=== PATIENT | female | born 1960 | race Caucasian/White ===

== ENCOUNTER 2018-01-22 11:06 | Emergency (ER) | payer SELFPAY ==
[~2018-01-22] VITALS: Ht 170.2 cm; Wt 86.2 kg
--- OUTSIDE RECORDS SUMMARY | 2018-01-22 11:12 | XMS REPORT | Continuity of Care Document ---
Author Author Gisela Womack [facility] Gisela LuanaTeo Vu [facility] Address Unknown Phone Unavailable Care Team Providers Care Green Prize Packer Name Role Phone RAMÓN BERG D.O. PCP Insurance Providers Guarantor Luanne Selby [address] [place] [address] Payer [employer] Policy Number [id number] Subscriber's Name Luanne Selby Relationship 01 Self / Same As Patient Effective Date 16 Problems Past Problems Medical Problem Onset Date RUQ abdominal pain Unknown Medications Current Home Medications Medication Dose Units Route Directions Days Qty Instructions Start Date Apixaban (Eliquis) 2.5 Mg Tab 05/31/16 Atorvastatin Calcium (Lipitor) 80 Mg Tab 80 Mg Oral 05/31/16 Citalopram Hydrobromide 10 Mg Tab 10 Mg Oral 05/31/16 Furosemide (Lasix) 20 Mg Tab 20 Mg Oral 05/31/16 Metoprolol Succinate (Toprol Xl) 25 Mg Tab 25 Mg Oral 05/31/16 Oxycodone Hcl 5 Mg Tab 05/31/16 Phenazopyridine Hcl (Pyridium) 200 Mg Tab 200 Mg Oral Three Times A Day 05/31/16 Potassium Chloride Microencaps (Klor-Con M20) 20 Meq Tab 20 Meq Oral 05/31/16 Promethazine Hcl (Phenergan (Po)) 25 Mg Tab 25 Mg Oral Every 4 Hours as needed for Nausea 15 Tablet 05/24/16 Sulfamethoxazole-Trimethoprim (Bactrim Ds) 1 Tab Tab 1 Tab Oral 05/31/16 Social History Social History Problem Response Recorded Date/Time Onset Date Status Smoking Status Heavy Tobacco Smoker 05/24/2016 5:17pm Not Applicable Not Applicable Query Response Start Date Stop Date Smoking Status Heavy Tobacco Smoker Hospital Discharge Instructions No hospital discharge instructions. Plan of Care Discharge Date 06/27/16 9:28am Prescriptions See Medication Section Functional Status No functional status results. Allergies, Adverse Reactions, Alerts Allergen Type Severity Reaction Status Last Updated No Known Drug Allergy Allergy Unknown Active 03/24/14 Immunizations No immunization records. Vital Signs Acute Vital Signs Vital Response Date/Time Blood Pressure 136/74 mm Hg 06/27/2016 9:26am Blood Pressure Mean 69 mm Hg 05/24/2016 8:15pm Temperature (Fahrenheit) 97.7 degrees F (96.0 - 99.9) 05/24/2016 5:12pm Temperature (Calculated Celsius) 36.68933 degrees C 05/24/2016 5:12pm Temperature Source Oral 05/24/2016 5:12pm Pulse Pulse Rate (adult) 67 bpm (60 - 100) 06/27/2016 9:26am Pulse Rate: ED 72 bpm 05/24/2016 8:15pm Respiratory Rate 18 breaths per minute (10 - 20) 05/24/2016 8:15pm Height (Feet) 5 ft 05/24/2016 5:12pm Height (Inches) 7.0 in. 05/24/2016 5:12pm Weight (Pounds) 150.0 lbs 05/24/2016 5:12pm Ambulatory Vital Signs Vital Response Date/Time Height 5 ft 7 in 06/07/2016 2:11pm Weight 155 lbs 06/07/2016 2:11pm Temperature, Oral 97.4 degrees F 06/07/2016 2:11pm Blood Pressure, Sitting, Left Arm 91/67 mm Hg 06/07/2016 2:11pm Pulse Rate 63 bpm 06/07/2016 2:11pm Respiration Rate 14 bpm 06/07/2016 2:11pm Body Surface Area 1.83 m2 06/07/2016 2:11pm Body Mass Index 24.3 kg/m2 06/07/2016 2:11pm Pulse Oximetry Pulse Oximetry 06/07/2016 2:11pm Results Laboratory Results Test Name Result Units Flags Reference Collection Date/Time Result Date/ Time Comments White Blood Count 6.9 K/uL 5.0-10.0 05/24/2016 5:pm 05/24/2016 5: 37pm Red Blood Count 3.99 M/uL L 4.20-5.40 05/24/2016 5:05/24/2016 5: 37pm Hemoglobin 13.3 g/dL 12.0-16.0 05/24/2016 5:05/24/2016 5:37pm Hematocrit 38.9 % 38.0-47.0 05/24/2016 5:05/24/2016 5:37pm Mean Corpuscular Volume 97.5 fL 82.0-100.0 05/24/2016 5:2016 5:37pm Mean Corpuscular Hemoglobin 33.3 pg H 26.0-33.0 05/24/2016 5:2016 5:37pm Mean Corpuscular Hemoglobin Concent 34.2 g/dL 31.0-36.0 05/24/2016 5: 05/24/2016 5:37pm Red Cell Distribution Width 12.7 % 11.5-14.5 05/24/2016 5:2016 5:37pm RDW Standard Deviation 45.4 fL 36.4-46.3 05/24/2016 5:05/24/2016 5 :37pm Platelet Count 143 K/uL 130-400 05/24/2016 5:05/24/2016 5:37pm Mean Platelet Volume 10.9 fL 7.0-11.0 05/24/2016 5:05/24/2016 5: 37pm Neutrophils (%) (Auto) 61.6 % 42.0-75.0 05/24/2016 5:05/24/2016 5: 37pm Lymphocytes (%) (Auto) 27.0 % 16.0-44.0 05/24/2016 5:05/24/2016 5: 37pm Monocytes (%) (Auto) 6.2 % 2.0-9.0 05/24/2016 5:05/24/2016 5:37pm Eosinophils (%) (Auto) 3.9 % 0-7.0 05/24/2016 5:25pm 05/24/2016 5:37pm Basophils (%) (Auto) 1.0 % 0-1 05/24/2016 5:25pm 05/24/2016 5:37pm Immature Granulocyte % (Auto) 0.3 % 0-0.5 05/24/2016 5:25pm 05/24/2016 5:37pm Nucleated Red Blood Cells % 0.0 /100WBC 0-0 05/24/2016 5:25pm 2016 5:37pm Neutrophils # (Auto) 4.2 K/uL 1.9-8.0 05/24/2016 5:25pm 05/24/2016 5: 37pm Lymphocytes # (Auto) 1.9 K/uL 0.9-5.2 05/24/2016 5:25pm 05/24/2016 5: 37pm Monocytes # (Auto) 0.4 K/uL 0.16-1.0 05/24/2016 5:25pm 05/24/2016 5: 37pm Eosinophils # (Auto) 0.3 K/uL 0-0.8 05/24/2016 5:25pm 05/24/2016 5: 37pm Basophils # (Auto) 0.1 K/uL 0-0.2 05/24/2016 5:25pm 05/24/2016 5:37pm Immature Granulocyte # (Auto) 0.02 K/uL 0-0.40 05/24/2016 5:25pm 2016 5:37pm Nucleated Red Blood Cells # 0.00 K/uL 0.0-0.012 05/24/2016 5:25pm 05/24 5:37pm Prothrombin Time 15.5 SECONDS H 9.0-12.0 05/24/2016 5:25pm 05/24/2016 7: 35pm Prothromb Time International Ratio 1.42 L 2.0-3.0 THERAPEUTIC 2016 5:25pm 05/24/2016 7:35pm Activated Partial Thromboplast Time 38.5 SECONDS H 24.0-37.0 05/24/2016 5 :25pm 05/24/2016 7:35pm D-Dimer Quantitative (PE/DVT) < 150 ng/mL 0-230 05/24/2016 5:25pm 05/24 7:35pm Results <230 ng/mL yeild a negative predictability for DVT or PE Random Glucose 130 mg/dL H 65-115 05/24/2016 5:pm 05/24/2016 6:40pm Blood Urea Nitrogen 9 mg/dL 8-25 05/24/2016 5:pm 05/24/2016 6:40pm Creatinine 1.08 mg/dL 0.9-1.6 05/24/2016 5:pm 05/24/2016 6:40pm Glomerular Filtration Rate Calc 52.48 mL/min 05/24/2016 5:pm 2016 6:40pm MULTIPLY RESULT BY 1.210 IF THE PATIENT IS -GUINEAN Units are mL/min/1.73 m2 > 60 Normal kidney function 30-59 Moderately decreased kidney function 15-29 Severely decreased kidney function <15 End-stage kidney failure BUN/Creatinine Ratio 8.3 05/24/2016 5:pm 05/24/2016 6:40pm Sodium Level 129 mEq/L L 133-145 05/24/2016 5:pm 05/24/2016 6:40pm Potassium Level 3.8 mEq/L 3.5-5.1 05/24/2016 5:pm 05/24/2016 6:40pm Chloride Level 103 mEq/L 98-116 05/24/2016 5:pm 05/24/2016 6:40pm Carbon Dioxide Level 22 mEq/L 22-34 05/24/2016 5:pm 05/24/2016 6: 40pm Anion Gap 7.8 6-13 05/24/2016 5:pm 05/24/2016 6:40pm Calcium Level 8.7 mg/dL 8.2-10.6 05/24/2016 5:pm 05/24/2016 6:40pm Total Protein 7.0 gm/dL 6.0-8.4 05/24/2016 5:pm 05/24/2016 6:40pm Albumin 4.5 gm/dL 3.2-5.0 05/24/2016 5:pm 05/24/2016 6:40pm Globulin 2.5 gm/dL 2.0-3.0 05/24/2016 5:pm 05/24/2016 6:40pm Albumin/Globulin Ratio 1.8 1.4-2.4 05/24/2016 5:25pm 05/24/2016 6: 40pm Total Bilirubin 1.2 mg/dL 0.1-1.3 05/24/2016 5:25pm 05/24/2016 6:40pm Alkaline Phosphatase 79 U/L 35-125 05/24/2016 5:25pm 05/24/2016 6:40pm Aspartate Amino Transf (AST/SGOT) 25 U/L 5-40 05/24/2016 5:25pm 2016 6:40pm Alanine Aminotransferase (ALT/SGPT) 15 U/L 5-40 05/24/2016 5:25pm 05/24 6:40pm Troponin I 0.00 ng/mL 0.0-0.02 05/24/2016 5:25pm 05/24/2016 6:39pm Lipase 24 U/L 8-57 05/24/2016 5:25pm 05/24/2016 6:40pm Procedures Procedure Status Date Provider(s) HYDRATION IV INFUSION INIT Completed 05/24/16 NOREEN GORMAN M.D. Encounters Encounter Location Arrival/Admit Date Discharge/Depart Date Attending Provider Departed Clinic Gisela Womack [facility] 06/27/16 8:22am 06/27/16 9: 28am COLE ROSENBERG M.D. Office Visit THA MARTINEZ 06/07/16 2:15pm THA MARTINEZ M.D. Registered Practice [facility] Martinez 06/07/16 2:15pm THA MARTINEZ M.D. Registered Referred Gisela Womack [facility] 06/04/16 6:37am THA MARTINEZ M.D. Office Visit THA MARTINEZ 05/31/16 2:15pm THA MARTINEZ M.D. Departed Emergency Room Giselazoila Womack [facility] 05/24/16 5:12pm 8:15pm NOREEN GORMAN M.D.
--- OUTSIDE RECORDS SUMMARY | 2018-01-22 11:12 | XMS REPORT | Continuity of Care Document ---
Author Author Gisela Anaya Vu [facility] Gisela Womack [facility] Address Unknown Phone Unavailable Care Team Providers Care Teleprinter Installer Name Role Phone RAMÓN BERG D.O. PCP Insurance Providers Guarantor Luanne Selby Address [address] [place] [address] Payer Health [employer] Policy Number [id number] Subscriber's Name Luanne Selby Relationship G8 Other Relationship Chief Complaint and Reason for Visit Chief Complaint Abdominal Pain Reason for Visit [id number] Problems Past Problems Medical Problem Onset Date RUQ abdominal pain Unknown Medications Current Home Medications Medication Dose Units Route Directions Days Qty Instructions Start Date Promethazine Hcl (Phenergan (Po)) 25 Mg Tab 25 Mg Oral Every 4 Hours as needed for Nausea 15 Tablet 05/24/16 Social History Social History Problem Response Recorded Date/Time Onset Date Status Smoking Status Heavy Tobacco Smoker 05/24/2016 5:17pm Not Applicable Not Applicable Query Response Start Date Stop Date Smoking Status Heavy Tobacco Smoker Hospital Discharge Instructions No hospital discharge instructions. Plan of Care Discharge Date 05/24/16 8:15pm Disposition 01 HOME, SELF-CARE Condition at Discharge Stable Instructions/Education Provided Abdominal Pain (ED) Prescriptions See Medication Section Referrals RAMÓN BERG D.O. Address: [facility] [address] [place] [address] Note: ELIAS BARROSO M.D. Address: [address] [place] [id number] Additional Instructions/Education Your CT scan and labs today were unremarkable. I suspect you have a poorly functioning gall bladder. You will need to have a HIDA scan done then follow up with Dr. Barroso to determine whether you need your gall bladder taken out or not. Use Phenergan for nausea. Continue with Oxycodone as needed for pain. Call Dr. Berg to get refills on your pain meds. Functional Status No functional status results. Allergies, Adverse Reactions, Alerts Allergen Type Severity Reaction Status Last Updated No Known Drug Allergy Allergy Unknown Active 03/24/14 NO KNOWN ALLERGIES Allergy Unknown Active 10/22/03 Immunizations No immunization records. Vital Signs Acute Vital Signs Vital Response Date/Time Blood Pressure 89/59 mm Hg 05/24/2016 8:15pm Blood Pressure Mean 69 mm Hg 05/24/2016 8:15pm Temperature (Fahrenheit) 97.7 degrees F (96.0 - 99.9) 05/24/2016 5:12pm Temperature (Calculated Celsius) 36.68328 degrees C 05/24/2016 5:12pm Temperature Source Oral 05/24/2016 5:12pm Pulse Pulse Rate (adult) 69 bpm (60 - 100) 05/24/2016 5:33pm Pulse Rate: ED 72 bpm 05/24/2016 8:15pm Respiratory Rate 18 breaths per minute (10 - 20) 05/24/2016 8:15pm Height (Feet) 5 ft 05/24/2016 5:12pm Height (Inches) 7.0 in. 05/24/2016 5:12pm Weight (Pounds) 150.0 lbs 05/24/2016 5:12pm Height 5 ft 7 in 05/24/2016 5:12pm Weight 150 lb 05/24/2016 5:12pm Body Mass Index 23.5 kg/m^2 05/24/2016 5:12pm Results Laboratory Results Test Name Result Units Flags Reference Collection Date/Time Result Date/ Time Comments White Blood Count 6.9 K/uL 5.0-10.0 05/24/2016 5:25pm 05/24/2016 5: 37pm Red Blood Count 3.99 M/uL L 4.20-5.40 05/24/2016 5:25pm 05/24/2016 5: 37pm Hemoglobin 13.3 g/dL 12.0-16.0 05/24/2016 5:pm 05/24/2016 5:37pm Hematocrit 38.9 % 38.0-47.0 05/24/2016 5:pm 05/24/2016 5:37pm Mean Corpuscular Volume 97.5 fL 82.0-100.0 [...] Monocytes (%) (Auto) 6.2 % 2.0-9.0 05/24/2016 5:pm 05/24/2016 5:37pm Eosinophils (%) (Auto) 3.9 % 0-7.0 05/24/2016 5:pm 05/24/2016 5:37pm Basophils (%) (Auto) 1.0 % 0-1 05/24/2016 5:05/24/2016 5:37pm Immature Granulocyte % (Auto) 0.3 % [...] Random Glucose 130 mg/dL H 65-115 05/24/2016 5:25pm 05/24/2016 6:40pm Blood Urea Nitrogen 9 mg/dL 8-25 05/24/2016 5:25pm 05/24/2016 6:40pm Creatinine 1.08 mg/dL 0.9-1.6 05/24/2016 5:25pm 05/24/2016 6:40pm Glomerular Filtration Rate Calc 52.48 mL/min 05/24/2016 5:25pm 2016 6:40pm MULTIPLY RESULT BY 1.210 IF THE PATIENT IS -BHUTANESE Units are mL/min/1.73 m2 > 60 Normal kidney function 30-59 Moderately decreased kidney function 15-29 Severely decreased kidney function <15 End-stage kidney failure BUN/Creatinine Ratio 8.3 05/24/2016 5:25pm 05/24/2016 6:40pm Sodium Level 129 mEq/L L [...] 05/24/2016 6:40pm Albumin/Globulin Ratio 1.8 1.4-2.4 05/24/2016 5:pm 05/24/2016 6: 40pm Total Bilirubin 1.2 mg/dL 0.1-1.3 05/24/2016 5:pm 05/24/2016 6:40pm Alkaline Phosphatase 79 U/L 35-125 05/24/2016 5:25pm 05/24/2016 6:40pm Aspartate Amino Transf (AST/SGOT) 25 U/L 5-40 05/24/2016 5:25pm 2016 6:40pm Alanine Aminotransferase (ALT/SGPT) 15 U/L 5-40 05/24/2016 5:25pm 05/24 6:40pm Troponin I 0.00 ng/mL 0.0-0.02 05/24/2016 5:25pm 05/24/2016 6:39pm Lipase 24 U/L 8-57 05/24/2016 5:25pm 05/24/2016 6:40pm Procedures No known history of procedures. Encounters Encounter Location Arrival/Admit Date Discharge/Depart Date Attending Provider Departed Emergency Room Gisela Womack [facility] 05/24/16 5:12pm 8:15pm NOREEN GORMAN M.D. Recent Diagnosis
--- OUTSIDE RECORDS SUMMARY | 2018-01-22 11:12 | XMS REPORT | Continuity of Care Document ---
Author Author [facility] Address Unknown Phone Unavailable Allergies Active Description Code Type Severity Reaction Onset Reported/Identified Relationship to Patient Clinical Status Yes ACETAMINOPHEN 3347 DRUG INGREDI N/A N&V 09/17/2014 Medications There is no data. Problems There is no data. Procedures There is no data. Results Test Result Range CBC WITH AUTO DIFFERENTIAL - 06/09/15 14:20 BASOPHILS RELATIVE PERCENT 0.2 % 0.0-2.5 EOSINOPHILS RELATIVE PERCENT 3.3 % <=5.0 HEMATOCRIT 41.0 % 34.9-44.5 HEMOGLOBIN 13.4 g/dL 12.0-15.5 LYMPHOCYTES RELATIVE PERCENT 32.4 % 22.0-49.0 MEAN CORPUSCULAR HEMOGLOBIN 31.4 pg 26.0-34.0 MEAN CORPUSCULAR HEMOGLOBIN CONC 32.7 g/dL 31.0-37.0 MEAN CORPUSCULAR VOLUME 96.0 fL 81.6-98.3 MONOCYTES RELATIVE PERCENT 5.2 % 2.0-9.0 NEUTROPHILS RELATIVE PERCENT 58.9 % 40.0-75.0 PLATELET COUNT 180 10E9/L 150-450 RED BLOOD CELL COUNT 4.27 10E12/L 3.90-5.03 RED CELL DISTRIBUTION WIDTH 12.8 % 11.9-15.5 [id number] 9.1 10E9/L 3.5-10.5 [id number] 2.90 10E9/L 0.90-2.90 [id number] 0.50 10E9/L 0.30-0.90 [id number] 0.30 10E9/L 0.05-0.50 [id number] 5.40 10E9/L 1.70-7.00 [id number] 0.00 10E9/L 0.00-0.30 COMPREHENSIVE METABOLIC PANEL - 06/09/15 14:20 ALBUMIN 4.1 g/dL 3.5-5.0 ALKALINE PHOSPHATASE 97 U/L 46-116 ALT 18 U/L 9-52 AST 19 U/L 14-36 BILIRUBIN,TOTAL 0.5 mg/dL 0.2-1.3 BUN BLOOD 9 mg/dL 7-17 CALCIUM 8.4 mg/dL 8.4-10.2 CHLORIDE 103 mmol/L 99-108 CO2 22 mmol/L 22-30 CREATININE 0.90 mg/dL 0.70-1.20 EGFR > mL/min >59 GLUCOSE 117 mg/dL 64-110 POTASSIUM 3.6 mmol/L 3.6-5.0 PROTEIN TOTAL 6.9 g/dL 6.0-8.0 SODIUM 140 mmol/L 138-148 URINE MICROSCOPIC - 06/09/15 14:26 BACTERIA Trace RBC UA 0-3 0-3 SQUAMOUS EPITHELIAL 1+ 1+ WBC UA 0-3 0-3 URINE CULTURE - 06/09/15 14:35 [id number] [place] Count>[id number] <782512 cfu/mL of at least 2 organisms suggestive of contamination Encounters ACCT No. Visit Date/Time Discharge Status Pt. Type Provider Facility Loc./Unit Complaint [id number] 06/09/2015 14:22:18 06/09/2015 23:59:59 CLS Outpatient [facility] [id number] 06/09/2015 13:39:23 06/09/2015 23:59:59 CLS Outpatient JESSE DENG [facility]
[2018-01-22] MEDS ORDERED: ONDANSETRON 8 MG (ZOFRAN) ORAL DISSOLVE TAB ONE (12:37)
--- NOTE | 2018-01-22 12:38 | ED Cough/URI ---
General Chief Complaint: Cough/Cold/Flu Symptoms Stated Complaint: EAR PAIN;SORE THROAT;NAUSEA Nursing Triage Note: Pt reports bilat ear pain, worse on right since yesterday. Pt also reports sore throat and nausea. Source: patient Exam Limitations: no limitations History of Present Illness Date Seen by Provider: Jan 22, 2018 Time Seen by Provider: 11:50 Initial Comments Patient is a 57-year-old female who presents to the emergency room with complaints of bilateral ear pain/pressure, sore throat, and nausea that started last night. She reports chills but denies checking her temperature. Timing/Duration: yesterday Associated Symptoms: earache, fever/chills, headache, sinus infection (sinue pressure), sore throat Allergies and Home Medications Allergies Coded Allergies: No Known Drug Allergies (Unverified , 01/22/18) Home Medications Ondansetron 4 Mg Tab.rapdis, 4 MG SL Q4H PRN for NAUSEA/VOMITING-1ST LINE Prescribed by: REGINA GALLEGO on 01/22/18 1300 Patient Home Medication List Home Medication List Reviewed: Yes Review of Systems Review of Systems Constitutional: see HPI, chills; No fever EENTM: see HPI, ear pain, throat pain, other Respiratory: see HPI Gastrointestinal: see HPI, nausea All Other Systems Reviewed Negative Unless Noted: Yes Past Oynrbgp-Abrmhl-Bpvgqx Hx Past Med/Social Hx: Reviewed Nursing Past Med/Soc Hx Patient Social History Alcohol Use: Denies Use Recreational Drug Use: No Smoking Status: Current Everyday Smoker Type Used: Cigarettes Recent Foreign Travel: No Contact w/Someone Who Travel: No Recent Infectious Disease Expo: No Recent Hopitalizations: No Seasonal Allergies Seasonal Allergies: No Past Medical History Surgeries: Yes (pacemaker/defib) Respiratory: Yes (pulmonary edema) Cardiac: Yes (QT syndrome) Hypertension, Irregular Heartbeat Gastrointestinal: No Musculoskeletal: No Endocrine: No HEENT: No Cancer: No Psychosocial: No Family Medical History Reviewed Nursing Family Hx Physical Exam Vital Signs - First Documented 01/22/18 11:17 Temp 97.9 Pulse 77 Resp 18 B/P (MAP) 109/77 (88) Pulse Ox 96 O2 Delivery Room Air Capillary Refill : Less Than 3 Seconds Height: 5'7.00" Weight: 190lbs. oz. 86.330212qa; BMI Method:Stated General Appearance: WD/WN, no apparent distress Eyes: Bilateral Eye Normal Inspection, Bilateral Eye PERRL, Bilateral Eye EOMI HEENT: PERRL/EOMI, TMs normal, pharynx normal, other (sinus tenterness maxillary and frontal) Neck: non-tender, full range of motion Respiratory: chest non-tender, lungs clear, normal breath sounds, no respiratory distress, no accessory muscle use, respiratory distress Cardiovascular: normal peripheral pulses, regular rate, rhythm, no edema, no gallop, no JVD, no murmur Gastrointestinal: normal bowel sounds, non tender, soft, no organomegaly, no pulsatile mass Neurologic/Psychiatric: alert, normal mood/affect, oriented x 3 Skin: normal color, warm/dry Progress/Results/Core Measures Suspected Sepsis Recent Fever Within 48 Hours: No Infection Criteria Present: Suspected New Infection New/Unexplained Altered Menta: No Sepsis Screen: No Definite Risk SIRS Temperature:97.9 Pulse: 77 Respiratory Rate: 18 Blood Pressure 109 /77 Mean: 88 Results/Orders Lab Results Laboratory Tests Test 01/22/18 11:58 Range/Units Group A Streptococcus Screen NEGATIVE NEGATIVE Micro Results Microbiology 01/22/18 Throat Culture - Final, Complete No Beta Strep isolated 01/22/18 Influenza Types A,B Antigen (DONNIE) - Final, Complete My Orders Orders - REGINA GALLEGO Hydrocodone/Apap 7.5/325 Tab (Lortab 7. (01/22/18 12:45) Ondansetron Oral Dissolve Tab (Zofran (01/22/18 12:45) Ondansetron Oral Dissolve Tab (Zofran O (01/22/18 12:37) Medications Given in ED Vital Signs/I&O 01/22/18 01/22/18 11:17 13:07 Temp 97.9 Pulse 77 72 Resp 18 18 B/P (MAP) 109/77 (88) 110/72 (88) Pulse Ox 96 96 O2 Delivery Room Air Capillary Refill : Less Than 3 Seconds Blood Pressure Mean: 88 Progress Note : Time: 12:50 Progress Note I have seen and evaluated the patient. I have informed her of laboratory findings. She agrees with plan of care, return precautions were given. Departure Impression Primary Impression: Sinus pressure Additional Impression: Environmental allergies Disposition: 01 HOME, SELF-CARE Condition: Stable/Unchanged Departure-Patient Inst. Decision time for Depature: 12:58 Patient Instructions: LOCAL PHYSICIAN LIST, Seasonal Allergies (DC) Add. Discharge Instructions: You may use ibuprofen and Tylenol as needed by the bottle for pain. Take the Zofran as needed for nausea. Use Afrin nasal spray as directed by the bottle. Add quyu-oro-nrdzokp allergy medications like Zyrtec or Claritin to your Benadryl regimen as directed by the bottle. Follow up with a primary care provider within 1 week for recheck. All discharge instructions reviewed with patient and/or family. Voiced understanding. Scripts Ondansetron (Zofran Odt) 4 Mg Tab.rapdis 4 MG SL Q4H PRN for NAUSEA/VOMITING-1ST LINE, #14 TAB Prov: REGINA GALLEGO 01/22/18 REGINA GALLEGO Jan 22, 2018 12:38
[2018-01-22] MEDS: ONDANSETRON 4 MG (ZOFRAN) ORAL DISSOLVE TAB PO ONE ×2 (12:42→12:43)
[2018-01-22] MEDS ORDERED: HYDROcodone/APAP 7.5 MG/325 MG (LORTAB, LORCET PLUS) TABLET PO ONE (12:45)
[2018-01-22] MEDS ORDERED: ONDA4TAB8 SL (13:00)
[2018-01-22 13:07] VITALS: BP 110/72
== END 2018-01-22 13:07 | disposition home or self-care (01) ==
LOC: ER 11:08
DX: J34.89 Other specified disorders of nose and nasal sinuses (principal); T78.40XA Allergy, unspecified, initial encounter; I10 Essential (primary) hypertension; Z95.810 Presence of automatic (implantable) cardiac defibrillator
CPT/HCPCS: 87430; 87804

== ENCOUNTER 2019-04-14 13:08 | Emergency (ER) | payer OTHER ==
[~2019-04-14] VITALS: Ht 170 cm; Wt 82.0 kg
[~2019-04-14 13:08] MED LIST: ONDA4TAB8 SL
[2019-04-14] MEDS ORDERED: ASPIRIN 81 MG CHEW (CHILDREN'S ASA) PO ONE (13:30)
[2019-04-14 13:32] LABS: BASOPHILS % (AUTO) 0 % (0-10); EOSINOPHILS # (AUTO) 0.2 10^3/uL (0.0-0.3); EOSINOPHILS % (AUTO) 3 % (0-10); HEMATOCRIT 40 % (35-52); HEMOGLOBIN 13.7 G/DL (11.5-16.0); LYMPHOCYTES # (AUTO) 1.8 X 10^3 (1.0-4.0); LYMPHOCYTES % (AUTO) 25 % (12-44); MEAN CORPUSCULAR HEMOGLOBIN 33 PG (25-34); MEAN CORPUSCULAR HGB CONC 34 G/DL (32-36); MEAN CORPUSCULAR VOLUME 96 FL (80-99); MEAN PLATELET VOLUME 11.2 FL (7.4-10.4); MONOCYTES # (AUTO) 0.3 X 10^3 (0.0-1.0); MONOCYTES % (AUTO) 4 % (0-12); NEUTROPHILS # (AUTO) 4.8 X 10^3 (1.8-7.8); NEUTROPHILS % (AUTO) 67 % (42-75); PLATELET COUNT 168 10^3/uL (130-400); RED CELL DISTRIBUTION WIDTH 13.7 % (10.0-14.5); WHITE BLOOD COUNT 7.2 10^3/uL (4.3-11.0)
[2019-04-14] MEDS ORDERED: RIVA10TA PO (13:39)
[2019-04-14] MEDS ORDERED: SPIR25TA5 PO (13:39)
[2019-04-14] MEDS ORDERED: CHOLESTEROL PO (13:39)
[2019-04-14] MEDS ORDERED: METO-387 PO (13:39)
[2019-04-14] MEDS ORDERED: FURO-125 PO (13:39)
--- NOTE | 2019-04-14 13:47 | Diagnostic Imaging Report ---
INDICATION: Chest pain. TIME OF EXAM: 1:33 PM COMPARISON: No prior studies are available for comparison. FINDINGS: Heart size is normal. Cardiac defibrillator is in place. The lungs are clear. No infiltrates are seen. There is no effusion or pneumothorax identified. IMPRESSION: No acute cardiopulmonary process is detected. Dictated by: Dictated on workstation # [id number]
[2019-04-14 13:48] LABS: INR 1.2 (0.8-1.4); PROTHROMBIN TIME PATIENT 15.8 SEC (12.2-14.7)
[2019-04-14 13:58] LABS: ALBUMIN 4.2 GM/DL (3.2-4.5); BILIRUBIN,TOTAL 0.6 MG/DL (0.1-1.0); CALCIUM 9.1 MG/DL (8.5-10.1); CREATININE SERUM 1.01 MG/DL (0.60-1.30); POTASSIUM 3.5 MMOL/L (3.6-5.0); TOTAL PROTEIN 6.8 GM/DL (6.4-8.2)
[2019-04-14] MEDS ORDERED: FAMOTIDINE 20MG/2ML IV (PEPCID) IV STA (14:12)
[2019-04-14] MEDS ORDERED: ANTACID SUSP 30 ML UDC (MYLANTA) PO ONE (14:15)
[2019-04-14] MEDS ORDERED: LIDOCAINE 2% VISCOUS 15 ML UDC PO ONE (14:15)
--- NOTE | 2019-04-14 14:57 | ED Chest Pain ---
General Chief Complaint: Chest Pain Stated Complaint: CHEST PAIN Nursing Triage Note: PT CO OF CHEST PAIN STARTED 1 WEEK AGO INTERMITTENLY, HAS BEEN GOING ON FOR 2 DAYS. RATES 6/10. HAS PACEMAKER AND DEFIBRILLATOR. PT C/P IS REPRODUCEABLE AT STERNUM Nursing Sepsis Screen: No Definite Risk Source: patient Exam Limitations: no limitations History of Present Illness Date Seen by Provider: Apr 14, 2019 Time Seen by Provider: 13:12 Initial Comments Here with report of central chest pain that radiates to the right shoulder is been going on fairly constantly over the last 2 days. Does have history of previous cardiac event with stent. She is on Xarelto and takes that as directed. She just lost her in January of this year and it has been difficult through the holidays. She also has increased stressors with a grandson that has substance abuse issues. Has had some nausea but no vomiting. Denies breathing problems. Denies sweating. States that she's had pain intermittently over the last week and then persistent over the last 2 days. Timing/Duration: changing over time Severity/Quality: pressure, sharp Location: central Radiation: shoulders (right) Activities at Onset: emotional stress Prior CP/Workup: cardiac cath ASA po CORPORATE STRATEGY INTERN: No NTG SL CORPORATE STRATEGY INTERN: No Associated Symptoms: No abdominal pain, No back pain; nausea/vomiting; No shortness of breath Allergies and Home Medications Allergies Coded Allergies: No Known Drug Allergies (Unverified , 01/22/18) Home Medications Furosemide 20 Mg Tablet, 20 MG PO PRN, (Reported) Metoprolol Succinate 25 Mg Tab.er.24h, 25 MG PO DAILY, (Reported) Patient Home Medication List Home Medication List Reviewed: Yes Review of Systems Review of Systems Constitutional: see HPI; No chills; fever EENTM: No Symptoms Reported Respiratory: No Symptoms Reported Cardiovascular: See HPI Gastrointestinal: See HPI; Denies Constipated, Denies Diarrhea Genitourinary: No Symptoms Reported Musculoskeletal: No joint pain; muscle pain Skin: no symptoms reported Psychiatric/Neurological: See HPI, Anxiety, Depressed Endocrine: No Symptoms Reported All Other Systems Reviewed Negative Unless Noted: Yes Past Ddxhrse-Osojnj-Omjmfq Hx Past Med/Social Hx: Reviewed Nursing Past Med/Soc Hx Patient Social History Alcohol Use: Denies Use Recreational Drug Use: No Smoking Status: Current Everyday Smoker Type Used: Cigarettes Recent Foreign Travel: No Contact w/Someone Who Travel: No Recent Infectious Disease Expo: No Recent Hopitalizations: No Physical Abuse: No Sexual Abuse: No Seasonal Allergies Seasonal Allergies: No Past Medical History Surgeries: Yes (pacemaker/defib) Respiratory: Yes (pulmonary edema) Cardiac: Yes (QT syndrome) Hypertension, Irregular Heartbeat [employer] History: Hysterectomy Gastrointestinal: No Musculoskeletal: No Endocrine: No HEENT: No Cancer: No Psychosocial: No Family Medical History Reviewed Nursing Family Hx No Pertinent Family Hx Physical Exam Vital Signs Vital Signs - First Documented 04/14/19 13:10 Temp 36.9 Pulse 84 Resp 18 B/P (MAP) 144/97 (113) O2 Delivery Room Air Capillary Refill : Less Than 3 Seconds Height, Weight, BMI Height: 5'7.00" Weight: 190lbs. oz. 86.245962tg; 28.00 BMI Method:Stated General Appearance: No Apparent Distress, WD/WN HEENT: PERRL/EOMI, Pharynx Normal Neck: Non Tender, Supple Respiratory: Lungs Clear, Normal Breath Sounds Cardiovascular: Regular Rate, Rhythm, No Murmur Gastrointestinal: Non Tender, Soft Extremity: Normal Range of Motion, Non Tender Neurologic/Psychiatric: Alert, Oriented x3 Skin: Normal Color, Warm/Dry Progress/Results/Core Measures Results/Orders Lab Results Laboratory Tests Test 04/14/19 13:20 04/14/19 15:20 Range/Units White Blood Count 7.2 4.3-11.0 10^3/uL Red Blood Count 4.19 L 4.35-5.85 10^6/uL Hemoglobin 13.7 11.5-16.0 G/DL Hematocrit 40 35-52 % Mean Corpuscular Volume 96 80-99 FL Mean Corpuscular Hemoglobin 33 25-34 PG Mean Corpuscular Hemoglobin Concent 34 32-36 G/DL Red Cell Distribution Width 13.7 10.0-14.5 % Platelet Count 168 130-400 10^3/uL Mean Platelet Volume 11.2 H 7.4-10.4 FL Neutrophils (%) (Auto) 67 42-75 % Lymphocytes (%) (Auto) 25 12-44 % Monocytes (%) (Auto) 4 0-12 % Eosinophils (%) (Auto) 3 0-10 % Basophils (%) (Auto) 0 0-10 % Neutrophils # (Auto) 4.8 1.8-7.8 X 10^3 Lymphocytes # (Auto) 1.8 1.0-4.0 X 10^3 Monocytes # (Auto) 0.3 0.0-1.0 X 10^3 Eosinophils # (Auto) 0.2 0.0-0.3 10^3/uL Basophils # (Auto) 0.0 0.0-0.1 10^3/uL Prothrombin Time 15.8 H 12.2-14.7 SEC INR Comment 1.2 0.8-1.4 Activated Partial Thromboplast Time 37 H 24-35 SEC Sodium Level 144 135-145 MMOL/L Potassium Level 3.5 L 3.6-5.0 MMOL/L Chloride Level 115 H 98-107 MMOL/L Carbon Dioxide Level 19 L 21-32 MMOL/L Anion Gap 10 5-14 MMOL/L Blood Urea Nitrogen 8 7-18 MG/DL Creatinine 1.01 0.60-1.30 MG/DL Estimat Glomerular Filtration Rate 56 BUN/Creatinine Ratio 8 Glucose Level 177 H 70-105 MG/DL Calcium Level 9.1 8.5-10.1 MG/DL Corrected Calcium 8.9 8.5-10.1 MG/DL Magnesium Level 2.0 1.6-2.4 MG/DL Total Bilirubin 0.6 0.1-1.0 MG/DL Aspartate Amino Transf (AST/SGOT) 23 5-34 U/L Alanine Aminotransferase (ALT/SGPT) 15 0-55 U/L Alkaline Phosphatase 124 40-136 U/L Myoglobin 39.9 10.0-92.0 NG/ML Troponin I < 0.028 < 0.028 <0.028 NG/ML Total Protein 6.8 6.4-8.2 GM/DL Albumin 4.2 3.2-4.5 GM/DL Lipase 20 8-78 U/L My Orders Orders - MARAL NAVARRO MD Cbc With Automated Diff (04/14/19 13:17) Magnesium (04/14/19 13:17) Chest 1 View, Ap/Pa Only (04/14/19 13:17) Ekg Tracing (04/14/19 13:17) Comprehensive Metabolic Panel (04/14/19 13:17) Myoglobin Serum (04/14/19 13:17) Protime With Inr (04/14/19 13:17) Partial Thromboplastin Time (04/14/19 13:17) O2 (04/14/19 13:17) Monitor-Rhythm Ecg Trace Only (04/14/19 13:17) Lipid Panel (04/15/19 06:00) Ed Iv/Invasive Line Start (04/14/19 13:17) Lipase (04/14/19 13:17) Troponin I (04/14/19 13:17) Aspirin Chewable Tablet (Baby Aspirin Ch (04/14/19 13:30) Lidocaine 2% Viscous 15 Ml (Xylocaine Vi (04/14/19 14:15) Antacid Suspension (Mylanta Suspension (04/14/19 14:15) Famotidine Injection (Pepcid Injection) (04/14/19 14:12) Troponin I (04/14/19 14:59) Medications Given in ED Current Medications Medications Dose Ordered Sig/Evonne Route Start Time Stop Time Status Last Admin Dose Admin Al Hydrox/Mg Hydrox/Simethicone 30 ml ONCE ONCE PO 04/14/19 14:15 04/14/19 14:16 DC 04/14/19 14:20 30 ML Aspirin 324 mg ONCE ONCE PO 04/14/19 13:30 04/14/19 13:31 DC 04/14/19 13:43 324 MG Lidocaine HCl 15 ml ONCE ONCE PO 04/14/19 14:15 04/14/19 14:16 DC 04/14/19 14:20 15 ML Vital Signs/I&O 04/14/19 04/14/19 13:10 13:10 Temp 36.9 Pulse 84 Resp 18 B/P (MAP) 144/97 (113) O2 Delivery Room Air Blood Pressure Mean: 113 Progress Progress Note : Progress Note Seen and evaluated. IV, labs, EKG and chest x-ray ordered. ASA 324 hours when necessary. Monitor patient. 1430: GI cocktail and Pepcid 20 mg IV ordered after negative workup to this point. We will repeat troponin at 1415. This appears to be noncardiac at this point but we will recheck troponin to get better clarity. This was discussed with the patient who agrees. She is overall comforted currently. 1610: Repeat troponin negative. Patient overall feeling better. She has appointment with her cellophane bag machine operator next month and she will try to move up to date. Discharged home with return precautions. Patient verbalize understanding instructions and agreement with plan. Initial ECG Impression Date: Apr 14, 2019 Initial ECG Impression Time: 13:13 Initial ECG Rate: 76 Initial ECG Rhythm: Normal Sinus Comment Sinus rhythm with premature ventricular contraction. Normal axis. No evidence of ST elevation [place]. No previous available for comparison. Interpreted by me. Diagnostic Imaging Diagonstic Imaging: Xray Plain Films/CT/US/NM/MRI: chest Comments [facility] [place], [place] NAME: LUANNE RAMIRES [facility] REC#: [id number] PT STATUS: REG ER : 1960 PHYSICIAN: MARAL NAVARRO MD ADMIT DATE: 04/14/19/ER Signed Date of Exam:04/14/19 CHEST 1 VIEW, AP/PA ONLY INDICATION: Chest pain. TIME OF EXAM: 1:33 PM COMPARISON: No prior studies are available for comparison. FINDINGS: Heart size is normal. Cardiac defibrillator is in place. The lungs are clear. No infiltrates are seen. There is no effusion or pneumothorax identified. IMPRESSION: No acute cardiopulmonary process is detected. Dictated by: Dictated on workstation # [id number] Dict: 04/14/19 1344 Trans: 04/14/19 1347 [id number] Interpreted by: ROBERTO CARLOS RAMIRES MD Electronically signed by: ROBERTO CARLOS RAMIRES MD 04/14/19 1347 Departure Impression Primary Impression: Chest pain Qualified Codes: R07.9 - Chest pain, unspecified Disposition: 01 HOME, SELF-CARE Condition: Improved Departure-Patient Inst. Decision time for Depature: 16:11 Referrals: NO,LOCAL PHYSICIAN (PCP/Family) Primary Care Physician Patient Instructions: Chest Pain (DC), Acid Reflux (Gastroesophageal Reflux Disease), Adult (DC) Add. Discharge Instructions: All discharge instructions reviewed with patient and/or family. Voiced un derstanding. Continue home medications as previously prescribed. You may initiate omeprazole 20 mg daily for up to the next 6 weeks. He may also try Pepcid or the generic famotidine 20 mg once or twice daily as needed for stomach upset. Follow-up with your DrTeo in a few days for recheck. Call your cellophane bag machine operator for earlier appointment. Return for worse pain, fever, vomiting, weakness, breathing problems or other concerns as needed. MARAL NAVARRO MD Apr 14, 2019 14:57
[2019-04-14 16:18] VITALS: BP 114/85
== END 2019-04-14 16:18 | disposition home or self-care (01) ==
LOC: EDUNIT# 13:08 → ER 13:09
DX: R07.89 Other chest pain (principal); I10 Essential (primary) hypertension; F17.210 Nicotine dependence, cigarettes, uncomplicated; Z95.810 Presence of automatic (implantable) cardiac defibrillator; Z79.01 Long term (current) use of anticoagulants; Z90.710 Acquired absence of both cervix and uterus
CPT/HCPCS: 36415; 71045; 80053; 83690; 83735; 83874; 84484; 85025; 85610; 85730; 93041; 96374

== ENCOUNTER 2019-09-21 07:35 | Observation (INO) | payer OTHER ==
[2019-09-21] VITALS (8 sets, daily range): BP systolic 69–92; BP diastolic 41–69
[~2019-09-21] VITALS: Ht 180.3 cm; Wt 83.7 kg
[~2019-09-21 07:35] MED LIST changes: +CHOLESTEROL PO; +FURO-125 PO; +MTP25TSR PO; +RIVA10TA PO; +SPIR25TA5 PO
[2019-09-21] MEDS ORDERED: ASPIRIN 81 MG CHEW (CHILDREN'S ASA) PO ONE (07:45)
[2019-09-21] MEDS ORDERED: LACTATED RINGERS 1,000 ML IV ONE ×3 (07:57→09:48)
[2019-09-21] MEDS ORDERED: RT-ALBUTEROL/IPRATROPIUM 3 ML (DUONEB) VIAL INH ONE (08:15)
[2019-09-21 08:17] LABS: BASOPHILS % (AUTO) 1 % (0-10); EOSINOPHILS # (AUTO) 0.2 10^3/uL (0.0-0.3); EOSINOPHILS % (AUTO) 3 % (0-10); HEMATOCRIT 40 % (35-52); HEMOGLOBIN 13.6 G/DL (11.5-16.0); LYMPHOCYTES # (AUTO) 1.4 X 10^3 (1.0-4.0); LYMPHOCYTES % (AUTO) 25 % (12-44); MEAN CORPUSCULAR HEMOGLOBIN 33 PG (25-34); MEAN CORPUSCULAR HGB CONC 34 G/DL (32-36); MEAN CORPUSCULAR VOLUME 97 FL (80-99); MEAN PLATELET VOLUME 10.3 FL (7.4-10.4); MONOCYTES # (AUTO) 0.6 X 10^3 (0.0-1.0); MONOCYTES % (AUTO) 10 % (0-12); NEUTROPHILS # (AUTO) 3.4 X 10^3 (1.8-7.8); NEUTROPHILS % (AUTO) 61 % (42-75); PLATELET COUNT 136 10^3/uL (130-400); RED CELL DISTRIBUTION WIDTH 14.6 % (10.0-14.5); WHITE BLOOD COUNT 5.5 10^3/uL (4.3-11.0)
[2019-09-21 08:24] LABS: ALBUMIN 4.1 GM/DL (3.2-4.5); INR 1.1 (0.8-1.4); PROTHROMBIN TIME PATIENT 14.6 SEC (12.2-14.7)
[2019-09-21 08:25] LABS: CHLORIDE 105 MMOL/L (98-107); POTASSIUM 3.5 MMOL/L (3.6-5.0); SODIUM 140 MMOL/L (135-145)
[2019-09-21 08:26] LABS: CALCIUM 9.1 MG/DL (8.5-10.1)
[2019-09-21 08:27] LABS: GLUCOSE 117 MG/DL (70-105); TOTAL PROTEIN 6.7 GM/DL (6.4-8.2)
[2019-09-21 08:28] LABS: CARBON DIOXIDE 25 MMOL/L (21-32)
[2019-09-21] MEDS ORDERED: ELQUIS (08:29)
[2019-09-21 08:30] LABS: ALKALINE PHOSPHATASE 107 U/L (40-136)
--- NOTE | 2019-09-21 08:30 | ED Chest Pain ---
General Chief Complaint: Chest Pain Stated Complaint: CHEST PAIN Nursing Triage Note: AMB TO ROOM C/O PRESSURE IN CENTER OF CHEST X 3 DAYS TODAY WOKE UP AND FELT SOA. ON ADMIT TO ROOM SA02 89% PLACED ON 2 L SAO2 UP TO 96% Nursing Sepsis Screen: No Definite Risk Source: patient Exam Limitations: no limitations (MARAL NAVARRO MD) History of Present Illness Date Seen by Provider: Sep 21, 2019 Time Seen by Provider: 07:50 Initial Comments Here with report of central chest tightness that has been intermittent over the last few days but worse this morning. States that she feels quite weak. Also feels short of breath. Does smoke but does not have diagnosis of COPD or asthma. She states that she would not be surprised if she does have that. Does feel a bit wheezy. O2 sat 89% on arrival on room air. Denies fever or chills. Denies upper respiratory symptoms. Recently had medication changes to metoprolol and states that she has been quite weak since. Denies nausea or vomiting. She is on Eliquis. Reports taking meds as directed. She has not had her morning dose. Timing/Duration: intermittent, 2-3 days Severity/Quality: tightness Location: central Radiation: no radiation Activities at Onset: none Prior CP/Workup: other (workup at outside facility with bi solutions architect being Dr. Sidhu. She reports changing to primary bi solutions architect Dr. Hoyos.) Modifying Factors: improves with oxygen, improves with rest ASA po COLLECTIONS MANAGER: No NTG SL COLLECTIONS MANAGER: No Associated Symptoms: No abdominal pain, No back pain, No diaphoresis, No dizziness; fatigue; No fever/chills, No nausea/vomiting; shortness of breath, weakness (MARAL NAVARRO MD) Allergies and Home Medications Allergies Coded Allergies: No Known Drug Allergies (Unverified , 01/22/18) Home Medications Furosemide 20 Mg Tablet, 20 MG PO PRN, (Reported) Metoprolol Succinate 25 Mg Tab.er.24h, 25 MG PO DAILY, (Reported) Patient Home Medication List Home Medication List Reviewed: Yes (MARAL NAVARRO MD) Review of Systems Review of Systems Constitutional: see HPI; No chills, No fever EENTM: No Symptoms Reported Respiratory: See HPI Cardiovascular: See HPI; Denies Edema, Denies Irregular Heart Rate Gastrointestinal: No Symptoms Reported Genitourinary: No Symptoms Reported Musculoskeletal: no symptoms reported Skin: no symptoms reported Psychiatric/Neurological: See HPI; Denies Headache; Weakness Endocrine: No Symptoms Reported (MARAL NAVARRO MD) All Other Systems Reviewed Negative Unless Noted: Yes (MARAL NAVARRO MD) Past Hmfrmfe-Jborsm-Vjuwdy Hx Past Med/Social Hx: Reviewed Nursing Past Med/Soc Hx (MARAL NAVARRO MD) Patient Social History Alcohol Use: Denies Use Recreational Drug Use: No Smoking Status: Current Everyday Smoker Type Used: Cigarettes Recent Foreign Travel: No Contact w/Someone Who Travel: No Recent Infectious Disease Expo: No Recent Hopitalizations: No (MARAL NAVARRO MD) Seasonal Allergies Seasonal Allergies: No (MARAL NAVARRO MD) Past Medical History Surgeries: Yes (pacemaker/defib) Respiratory: Yes (pulmonary edema) Cardiac: Yes (QT syndrome) Hypertension, Irregular Heartbeat 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 oz. 86.695118pr; 29.00 BMI Method:Stated General Appearance: No Apparent Distress, WD/WN HEENT: PERRL/EOMI, Pharynx Normal Neck: Non Tender, Supple Respiratory: No Respiratory Distress, Decreased Breath Sounds, Expiration, Wheezing Cardiovascular: No Murmur, Tachycardia Gastrointestinal: Non Tender, Soft Extremity: Normal Range of Motion, Non Tender Neurologic/Psychiatric: Alert, Oriented x3 Skin: Normal Color, Warm/Dry (MARAL NAVARRO MD) Focused Exam Lactate Level 09/21/19 09:56: Lactic Acid Level 1.39 (CAROLYNE WALSH APRN) Lactic Acid Level Laboratory Tests Test 09/21/19 09:56 Lactic Acid Level 1.39 MMOL/L (0.50-2.00) (CAROLYNE WALSH APRN) Progress/Results/Core Measures Results/Orders Lab Results Laboratory Tests Test 09/21/19 08:06 09/21/19 09:47 09/21/19 09:56 Range/Units White Blood Count 5.5 4.3-11.0 10^3/uL Red Blood Count 4.11 L 4.35-5.85 10^6/uL Hemoglobin 13.6 11.5-16.0 G/DL Hematocrit 40 35-52 % Mean Corpuscular Volume 97 80-99 FL Mean Corpuscular Hemoglobin 33 25-34 PG Mean Corpuscular Hemoglobin Concent 34 32-36 G/DL Red Cell Distribution Width 14.6 H 10.0-14.5 % Platelet Count 136 130-400 10^3/uL Mean Platelet Volume 10.3 7.4-10.4 FL Neutrophils (%) (Auto) 61 42-75 % Lymphocytes (%) (Auto) 25 12-44 % Monocytes (%) (Auto) 10 0-12 % Eosinophils (%) (Auto) 3 0-10 % Basophils (%) (Auto) 1 0-10 % Neutrophils # (Auto) 3.4 1.8-7.8 X 10^3 Lymphocytes # (Auto) 1.4 1.0-4.0 X 10^3 Monocytes # (Auto) 0.6 0.0-1.0 X 10^3 Eosinophils # (Auto) 0.2 0.0-0.3 10^3/uL Basophils # (Auto) 0.0 0.0-0.1 10^3/uL Prothrombin Time 14.6 12.2-14.7 SEC INR Comment 1.1 0.8-1.4 Activated Partial Thromboplast Time 31 24-35 SEC D-Dimer 0.36 0.00-0.49 UG/ML Sodium Level 140 135-145 MMOL/L Potassium Level 3.5 L 3.6-5.0 MMOL/L Chloride Level 105 98-107 MMOL/L Carbon Dioxide Level 25 21-32 MMOL/L Anion Gap 10 5-14 MMOL/L Blood Urea Nitrogen 10 7-18 MG/DL Creatinine 0.96 0.60-1.30 MG/DL Estimat Glomerular Filtration Rate 59 BUN/Creatinine Ratio 10 Glucose Level 117 H 70-105 MG/DL Calcium Level 9.1 8.5-10.1 MG/DL Corrected Calcium 9.0 8.5-10.1 MG/DL Magnesium Level 1.9 1.6-2.4 MG/DL Total Bilirubin 1.0 0.1-1.0 MG/DL Aspartate Amino Transf (AST/SGOT) 28 5-34 U/L Alanine Aminotransferase (ALT/SGPT) 16 0-55 U/L Alkaline Phosphatase 107 40-136 U/L Myoglobin 51.3 10.0-92.0 NG/ML Troponin I < 0.028 <0.028 NG/ML C-Reactive Protein High Sensitivity 1.20 H 0.00-0.50 MG/DL Total Protein 6.7 6.4-8.2 GM/DL Albumin 4.1 3.2-4.5 GM/DL Urine Color YELLOW Urine Clarity CLEAR Urine pH 7.0 5-9 Urine Specific [place] <=1.005 1.016-1.022 Urine Protein NEGATIVE NEGATIVE Urine Glucose (UA) NEGATIVE NEGATIVE Urine Ketones NEGATIVE NEGATIVE Urine Nitrite NEGATIVE NEGATIVE Urine Bilirubin NEGATIVE NEGATIVE Urine Urobilinogen 1.0 < = 1.0 MG/DL Urine Leukocyte Esterase NEGATIVE NEGATIVE Urine RBC (Auto) TRACE-I NEGATIVE Urine RBC RARE /HPF Urine WBC NONE /HPF Urine Squamous Epithelial Cells RARE /HPF Urine Crystals NONE /LPF Urine Bacteria NEGATIVE /HPF Urine Casts NONE /LPF Urine Mucus NEGATIVE /LPF Urine Culture Indicated NO Lactic Acid Level 1.39 0.50-2.00 MMOL/L (CAROLYNE WALSH APRN) My Orders Orders - CAROLYNE WALSH APRN Drug Screen Stat (Urine) (09/21/19 10:33) (CAROLYNE WALSH APRN) Medications Given in ED Current Medications Medications Dose Ordered Sig/Evonne Route Start Time Stop Time Status Last Admin Dose Admin Albuterol/ Ipratropium 3 ml ONCE ONCE INH 09/21/19 08:15 09/21/19 08:16 DC 09/21/19 08:15 3 ML Aspirin 324 mg ONCE ONCE PO 09/21/19 07:45 09/21/19 07:46 DC 09/21/19 08:06 324 MG Lactated Ringer's 1,000 ml @ 0 mls/hr Q0M ONCE IV 09/21/19 08:09 09/21/19 08:10 DC 09/21/19 08:06 1,000 MLS/HR Lactated Ringer's 1,000 ml @ 0 mls/hr Q0M ONCE IV 09/21/19 09:48 09/21/19 09:49 DC 09/21/19 09:55 1,000 MLS/HR (CAROLYNE WALSH APRN) Vital Signs/I&O 09/21/19 09/21/19 07:35 07:35 Temp 36.8 Pulse 102 Resp 18 B/P (MAP) 111/80 (90) Pulse Ox 89 O2 Delivery Nasal Cannula Room Air O2 Flow Rate 2.00 (CAROLYNE WALSH APRN) Blood Pressure Mean: 90 Progress Progress Note : Progress Note Seen and evaluated. IV, labs, EKG, chest x-ray and ASA 324 mg by mouth ordered. Duo neb ordered. Monitor patient. 0946: Patient's blood pressure has been at or slightly below 90 systolic. LR 1 L bolus ordered and is running. Patient states her breathing is better after DuoNeb. Given concerns of hypotension in the setti ng of respiratory problems we will go ahead and add labs to fill sepsis protocol including blood cultures, lactic acid and UA. We will continue LR as needed to keep blood pressure above 90 systolic. (MARAL NAVARRO MD) Initial ECG Impression Date: Sep 21, 2019 Initial ECG Impression Time: 07:37 Initial ECG Rate: 101 Initial ECG Rhythm: S.Tach Comment Sinus tachycardia with normal but rightward axis. No evidence of ST elevation [place]. Similar to previous of 04/14/19. Interpreted by me. (MARAL NAVARRO MD) Diagnostic Imaging Diagonstic Imaging: Xray Plain Films/CT/US/NM/MRI: chest Comments [facility]. [place], [place] NAME: LUANNE RAMIRES [facility] REC#: [id number] PT STATUS: REG ER : 1960 PHYSICIAN: MARAL NAVARRO MD ADMIT DATE: 09/21/19/ER Draft Date of Exam:09/21/19 CHEST 1 VIEW, AP/PA ONLY EXAMINATION: Portable erect AP chest at 3:27 AM INDICATION: Chest pain The heart size is within normal limits and stable when compared to 04/14/2019. The right-sided defibrillator device seen previously is again evident and no different. The lungs remain clear. There is still no sign of failure, pneumonia or pleural effusion to indicate an acute abnormality. The mediastinum is not widened. The osseous structures are intact. IMPRESSION: Stable chest. There has been no adverse change since the prior exam. Dictated on workstation # [id number] Dict: 09/21/19 0836 Trans: 09/21/19 0839 [facility] [id number] Interpreted by: ELIAS PUENTES MD Electronically signed by: (MARAL NAVARRO MD) Departure Communication (Admissions) Time/Spoke to Admitting Phy: 10:[address] Khan, we'll admit, consult cardiology. 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 Coello out of [place] that she would like to establish care with someone else. (CAROLYNE WALSH APRN) Impression Primary Impression: Chest pain Qualified Codes: R07.9 - Chest pain, unspecified Additional Impression: Hypotension Qualified Codes: I95.9 - Hypotension, unspecified Disposition: ADMITTED INPATIENT Condition: Stable Admissions Decision to Admit Reason: Admit from ER (General) Decision to Admit/Date: Sep 21, 2019 Time/Decision to Admit Time: 10:50 (CAROLYNE WALSH APRN) Departure-Patient Inst. Referrals: JEREMY PISANO MD (PCP/Family) Primary Care Physician MARAL NAVARRO MD Sep 21, 2019 08:30 CAROLYNE WALSH APRN Sep 21, 2019 10:52
[2019-09-21 08:31] LABS: CREATININE SERUM 0.96 MG/DL (0.60-1.30); GFR ESTIMATED 59
[2019-09-21 08:32] LABS: BUN/CREATININE RATIO 10
[2019-09-21 08:33] LABS: MAGNESIUM 1.9 MG/DL (1.6-2.4)
[2019-09-21 08:34] LABS: ALANINE AMINOTRANSFERASE 16 U/L (0-55)
--- NOTE | 2019-09-21 08:39 | Diagnostic Imaging Report ---
EXAMINATION: Portable erect AP chest at 3:27 AM INDICATION: Chest pain The heart size is within normal limits and stable when compared to 04/14/2019. The right-sided defibrillator device seen previously is again evident and no different. The lungs remain clear. There is still no sign of failure, pneumonia or pleural effusion to indicate an acute abnormality. The mediastinum is not widened. The osseous structures are intact. IMPRESSION: Stable chest. There has been no adverse change since the prior exam. Dictated by: Dictated on workstation # [id number]
--- NOTE | 2019-09-21 09:47 | NUR ---
AMB TO BATHROOM LEFT 02 OFF BACK TO BED SA02 89% TO 90% PLACED BACK ON 02 AT 2 L PATIENT REPORTS BEING TIRED.
[2019-09-21 10:03] LABS: BILIRUBIN,URINE NEGATIVE (NEGATIVE); CLARITY,URINE CLEAR; COLOR,URINE YELLOW; GLUCOSE, URINE (UA) NEGATIVE (NEGATIVE); KETONES,URINE NEGATIVE (NEGATIVE); LEUKOCYTE ESTERASE ,URINE NEGATIVE (NEGATIVE); NITRITE,URINE NEGATIVE (NEGATIVE); PROTEIN,URINE NEGATIVE (NEGATIVE)
[2019-09-21 10:10] LABS: BACTERIA,URINE NEGATIVE /HPF; RBC,URINE RARE /HPF; SQUAMOUS EPITHELIAL CELL,UR RARE /HPF
[2019-09-21 11:06] LABS: AMPHETAMINE SCREEN, URINE NEGATIVE (NEGATIVE); BARBITURATE SCREEN URINE NEGATIVE (NEGATIVE); BENZODIAZEPINES SCREEN URINE POSITIVE (NEGATIVE); CANNABINOID SCREEN, URINE NEGATIVE (NEGATIVE); COCAINE SCREEN URINE NEGATIVE (NEGATIVE); METHADONE STAT NEGATIVE (NEGATIVE); METHAMPHETAMINE SCREEN URINE S NEGATIVE (NEGATIVE); OPIATE SCREEN URINE POSITIVE (NEGATIVE); OXYCODONE STAT POSITIVE (NEGATIVE); PROPOXYPHENE STAT NEGATIVE (NEGATIVE); TRICYCLIC ANTIDEPRESSANTS SCRE NEGATIVE (NEGATIVE)
--- NOTE | 2019-09-21 12:08 | History & Physical-Hospitalist ---
History of Present Illness HPI/Chief Complaint Pt is a 59yoCF with a PMH of long QT syndrome and cardiac arrest in 2016. She states that she has bnot been feeling well for a while but the last few days she has been exhausted and very sleepy. She started to developed chest pain intermittently and it was worse last night. She drank some milk because she thought i was her heartburn and it got better so she went to bed. This morning she woke up with more chest tightness so decided to come in. At some point she called her PCP Mike Coello who ordered labs and recommended she get evaluation in the ER but she waited until today. She was started on thyroid medicine and Vitamin D though. Also her metoprolol was increased within the past week by her dining room helper and she states this always makes her hypotensive and tired. Source: patient Date Seen 09/21/19 Time Seen by a Provider: 11:45 Attending Physician Mark Mcadams MD PCP Placido Wiggins MD Referring Physician Date of Admission Sep 21, 2019 at 11:33 Home Medications & Allergies Home Medications Reviewed patient Home Medication Reconciliation performed by pharmacy medication reconciliations debug technician and/or nursing. Patients Allergies have been reviewed. Allergies Allergies Coded Allergies No Known Drug Allergies ([id number]/3/18) Past Pverttr-Ylruzd-Wlnjna Hx Past Med/Social Hx: Reviewed Nursing Past Med/Soc Hx Patient Social History Marrital Status: Alcohol Use: Denies Use Recreational Drug Use: No Smoking Status: Current Everyday Smoker Type Used: Cigarettes Recent Foreign Travel: No Contact w/other who traveled: No Recent Hopitalizations: No Recent Infectious Disease Expo: No Seasonal Allergies Seasonal Allergies: No Past Medical History Surgeries: Defibrillator Cardiac: Cardiomyopathy, Congenital Heart Disease (long qt syndrome), Heart Attack (at 32yo), Hypertension, Irregular Heartbeat Hysterectomy Family History Reviewed Nursing Family Hx Heart Disease Family history of Long QT syndrome. Mother, brother, and multiple second degree relatives <50yo due to SCD. Review of Systems Constitutional: No chills, No fever; malaise, weakness EENTM: no symptoms reported Respiratory: no symptoms reported Cardiovascular: see HPI; No edema; Hx of Intervention Gastrointestinal: no symptoms reported Genitourinary: no symptoms reported Musculoskeletal: no symptoms reported Skin: no symptoms reported Psychiatric/Neurological: Anxiety (stress) Physical Exam Physical Exam Vital Signs Vital Signs - First Documented 09/21/19 07:35 Temp 36.8 Pulse 102 Resp 18 B/P (MAP) 111/80 (90) Pulse Ox 89 O2 Delivery Nasal Cannula O2 Flow Rate 2.00 Capillary Refill : Less Than 3 Seconds Height, Weight, BMI Height: 5'7.00" Weight: 190lbs. oz. 86.711464wt; 29.00 BMI Method:Stated General Appearance: No Apparent Distress, WD/WN HEENT: Moist Mucous Membranes; No Scleral Icterus (L), No Scleral Icterus (R) Neck: Normal Inspection, Supple Respiratory: Lungs Clear, No Accessory Muscle Use, No Respiratory Distress Cardiovascular: Regular Rate, Rhythm, No Murmur Gastrointestinal: Normal Bowel Sounds, Non Tender, Soft Extremity: Non Tender, No Calf Tenderness, No Pedal Edema Neurologic/Psychiatric: Alert, Oriented x3, Normal Mood/Affect Skin: Normal Color, Warm/Dry Results Results/Procedures Labs Laboratory Tests 09/21/19 08:06 Patient resulted labs reviewed. Imaging: Reviewed Imaging Report Imaging Date of Exam:09/21/19 CHEST 1 VIEW, AP/PA ONLY EXAMINATION: Portable erect AP chest at 3:27 AM INDICATION: Chest pain The heart size is within normal limits and stable when compared to 04/14/2019. The right-sided defibrillator device seen previously is again evident and no different. The lungs remain clear. There is still no sign of failure, pneumonia or pleural effusion to indicate an acute abnormality. The mediastinum is not widened. The osseous structures are intact. IMPRESSION: Stable chest. There has been no adverse change since the prior exam. Assessment/Plan Admission Diagnosis Chest pain Admission Status: Observation Assessment and Plan Chest pain Long QT Syndrome s/p Cardiac arrest in 2016 Cardiomyopathy troponin negative x1 Had 4 beat run of V-tach in ER Cardiology consulted, appreciate recs Mildly hypotensive- trend Continue home meds as BP allows Fatigue Likely multifactorial UDS positive for opiates and benzos Also recently increased Metoprolol GERD Resume PPI Hypothyroidism Resume home supplement Clinical Quality Measures AMI/AHF: ASA po Prior to arrival: MARK Diego MD Sep 21, 2019 12:08
--- NOTE | 2019-09-21 14:45 | NUR ---
Dr Mcadams notified of pts low bp monitor reading systolic in the 70's this nurse obtained a 87/[address] Mcadams instructs to monitor bp and if systolic drops down to low 80's to initiate a 500 ml ns bolus and notify her of pressures. Will continue to monitor.
[2019-09-21] MEDS ORDERED: METO50TA7 PO (14:49)
[2019-09-21] MEDS ORDERED: LEVO25TA80 PO (14:49)
[2019-09-21] MEDS ORDERED: CYCL10TA9 PO (14:50)
[2019-09-21] MEDS ORDERED: MULT-1136 PO (14:50)
[2019-09-21] MEDS ORDERED: DOCU-143 PO (14:50)
--- NOTE | 2019-09-21 14:56 | Consultation-Cardiology ---
HPI-Cardiology Cardiology Consultation: Date of Consultation 09/21/19 Date of Admission Attending Physician Frannie Mcadams MD Admitting Physician Placido Wiggins MD Consulting Physician William VILLAREAL MD HPI: Time Seen by a Provider: 13:00 Chief Complaint: Fatigue. This is a 59-year-old lady with history of long QT syndrome and cardiac arrest in 2016 requiring ICD implantation at [facility] in [place]. According to the patient she had coronary angiography at that point in time we did not show any significant CAD. She is an active smoker. She has positive family history of sudden cardiac and long QT syndrome. She presented with fatigue. Some vague chest tightness. She denies any other complaint. Her dose of metoprolol was increased recently. She was found to be hypotensive and started on IV fluids. She denies any complain when I saw the patient. Review of Systems-Cardiology Review of Systems Constitutional: As described under HPI; No As described under HPI, No no symptoms reported, No chills, No fever, No lightheadedness; malaise, tiredness Eyes: No As described under HPI, No no symptoms reported, No blindness, No blurred vision, No contact lenses, No drainage, No decreased acuity, No foreign body sensation, No pain, No vision change Ears/Nose/Throat: No As described under HPI, No no symptoms reported, No chronic hearing loss, No ear discharge, No ear pain, No nasal drainage, No ulcerations Respiratory: No no symptoms reported; As described under HPI; No As described under HPI, No cough, No orthopnea, No shortness of breath, No SOB with excertion Cardiovascular: No no symptoms reported; As described under HPI; No As described under HPI, No chest pain, No edema, No irregular heart rate, No lig htheadedness, No palpitations Gastrointestinal: No no symptoms reported, No As described under HPI, No abd omen distended, No abdominal pain, No blood streaked bowels, No constipation, No diarrhea, No nausea, No vomiting, No stool coloration changes Genitourinary: No As described under HPI, No burning, No dysuria, No discharge, No frequency, No flank pain, No hematuria, No urgency : Yes : No Skin: No rash, No skin related problems, No ulcerations Psychiatric/Neurological: No anxiety, No depression, No seizure, No focal weakness, No syncope Hematologic: No bleeding abnormalities All Other Systems Reviewed Negative Unless Noted: Yes ULH-Hejkzq-Rcvafd Hx Patient Social History Marrital Status: Alcohol Use: Denies Use Recreational Drug Use: No Smoking Status: Current Everyday Smoker Type Used: Cigarettes Recent Foreign Travel: No Recent Infectious Disease Expo: No Hospitalization with Isolation: Denies Immunizations Up To Date Date of Pneumonia Vaccine: Jan 20, 2019 Past Medical History PMH As described under Assessment. Allergies and Home Medications Allergies Coded Allergies: No Known Drug Allergies (Unverified , 01/22/18) Home Medications Atorvastatin Calcium 80 Mg Tablet, 80 MG PO DAILY, (Reported) LAST FILLED 01-29-2019 #90 Cyclobenzaprine HCl 10 Mg Tablet, 10 MG PO TID PRN for MUSCLE SPASMS, (Reported) Docusate Sodium 100 Mg Capsule, 100 MG PO DAILY, (Reported) Ergocalciferol (Vitamin D2) 1,250 Mcg Capsule, 1,250 MCG PO SATURDAY, (Reported) Furosemide 20 Mg Tablet, 20 MG PO DAILY PRN for FLUID RETENTION, (Reported) TAKE IF THERE IS A WEIGHT GAIN OF 3-5 LBS IN 1 WEEK Levothyroxine Sodium 25 Mcg Tablet, 25 MCG PO DAILY, (Reported) Metoprolol Succinate 50 Mg Tab.er.24h, 50 MG PO DAILY, (Reported) Multivitamin 1 Each Tablet, 1 EACH PO DAILY, (Reported) Patient Home Medication List Home Medication List Reviewed: Yes Physical Exam-Cardiology Physical Exam Vital Signs/I&O 09/22/19 09/22/19 09/22/19 09/22/19 04:00 04:00 07:07 08:00 Temp 36.8 Pulse 85 O2 Delivery Nasal Cannula Room Air O2 Flow Rate 2.00 09/22/19 09/22/19 08:00 09:00 Temp 36.2 Pulse 90 Resp 15 B/P (MAP) 103/69 (80) Pulse Ox 94 O2 Delivery Nasal Cannula Room Air O2 Flow Rate 2.00 09/22/19 00:00 Intake Total 3340 ml Output Total 1450 ml Balance 1890 ml Capillary Refill : Less Than 3 Seconds Constitutional: appears stated age, AAO x 3; No apparent distress; well- developed, well-nourished HEENT: PERRL; No discharge; hearing is well preserved, oral hygience is good; No ulceration, No xanthelasmas are seen Neck: No carotid bruit; carotid pulses are 2 + bilaterally Respiratory: chest is bilaterally symmetric, lungs clear to auscultation; No wheezing Cardiovascular: regular rate-rhythm, S1 and S2; No diastolic murmur, No systolic murmur Gastrointestinal: soft, audible bowel sounds; No spleenomegaly Rectal: deferred Extremities: normal range of motion, non-tender, normal inspection; No clubbing, No cyanosis; no lower extremity edema bilateral; No significant edema Neurologic/Psychiatric: no motor/sensory deficits, alert, normal mood/affect, oriented x 3, power is 5/5 both on sides Skin: normal color, warm/dry; No rash, No ulcerations Data Review Labs Laboratory Tests 09/21/19 17:55: Troponin I < 0.028 09/22/19 02:30: White Blood Count 3.6L, Red Blood Count 3.30L, Hemoglobin 10.9L, Hematocrit 32L, Mean Corpuscular Volume 98, Mean Corpuscular Hemoglobin 33, Mean Corpuscular Hemoglobin Concent 34, Red Cell Distribution Width 14.7H, Platelet Count 110L, Mean Platelet Volume 11.3H, Neutrophils (%) (Auto) 59, Lymphocytes (%) (Auto) 26, Monocytes (%) (Auto) 10, Eosinophils (%) (Auto) 4, Basophils (%) (Auto) 0, Neutrophils # (Auto) 2.2, Lymphocytes # (Auto) 1.0, Monocytes # (Auto) 0.4, Eosinophils # (Auto) 0.1, Basophils # (Auto) 0.0, Sodium Level 140, Potassium Level 3.3L, Chloride Level 108H, Carbon Dioxide Level 22, Anion Gap 10, Blood Urea Nitrogen 6L, Creatinine 0.74, Estimat Glomerular Filtration Rate > 60, BUN/Creatinine Ratio 8, Glucose Level 122H, Calcium Level 8.3L, Phosphorus Level 3.0, Magnesium Level 1.8, Triglycerides Level 103, Cholesterol Level 94, LDL Cholesterol Direct 71, VLDL Cholesterol 21, HDL Cholesterol 18L ECG Impression ECG Comment Sinus tachycardia, prolonged QT interval. A/P-Cardiology Assessment/Admission Diagnosis Fatigue, Prolonged QT syndrome, ICD, Nonischemic cardiomyopathy, Hypertension, Hyperlipidemia, Active smoking. Plan Fatigue, unclear etiology. Patient was hypotensive. We will gradually decrease her cardiomyopathy medications and see if she has improvement. Prolonged QT syndrome, brief run of nonsustained VT. On beta blockers. Already has an ICD. ICD, no active issues. Nonischemic cardiomyopathy, echocardiogram done 09/21/2019 shows EF of 35-40 percent with apical akinesis. This may require noninvasive evaluation of the coronaries with a stress test in the near future. Hypertension, mildly hypotensive. However will require low-dose beta eleuterio as an outpatient. Hyperlipidemia, continue statin therapy. Active smoking. Smoking cessation was strongly recommended. Thank you for your consultation. Please call me if you have any questions. Priti Villareal MD, FACP, FACC, FSCAI, FHRS, CCDS Interventional Cardiology Cardiac Electrophysiology Vascular Medicine and Endovascular Interventions Clinical Quality Measures AMI/AHF: ASA po Prior to arrival: No DVT/VTE Risk/Contraindication: Risk Factor Score Per Nursin RFS Level Per Nursing on Admit: 4+=Very High William VILLAREAL MD Sep 21, 2019 14:55
[2019-09-21] MEDS ORDERED: ATOR80TA76 PO (15:22)
--- NOTE | 2019-09-21 15:36 | NUR ---
SPOKE WITH THE PT (SHE HAS MED BOTTLE W/ HER) WENT THRU THE EXT MED HISTORY AND CALLED [facility] TO COMPLETE THE MED REC PT HAD ELIQUIS 5MG AND SPIRONOLACTONE 25MG WITH HER BUT THEY WERE BOTH BOTH AUGUST 2017 AT [facility] - SHE SAID SHE HAD FILLED THEM AT [facility] SINCE THEM. I CALLED [facility] AND THEY HAVE NO RECORD OF THESE SCRIPTS AND [facility] HAS NOT FILLED THESE SINCE 2018. DUE TO THESE REASONS I DID NOT INCLUDE THEM ON THE MED REC ATORVASTATIN 80MG LAST FILLED 01-29-2019 #90/90DS- I DID DOCUMENT THE PAST DUE FILL ON THE MED REC FLEXERIL 10MG LAST FILLED 06-10-2019 #30/10DS OTC MEDS: PUNEET AGARWAL
[2019-09-21] MEDS ORDERED: ERGO50006 PO (15:40)
--- NOTE | 2019-09-21 15:51 | NUR ---
PT RECEIVED DEFINITY DURING ECHOCARDIOGRAM. PT TOLERATED THE PROCEDURE WITH NO COMPLAINTS
[2019-09-21] MEDS ORDERED: NICOTINE 14 MG (NICODERM) PATCH TD ONE (20:24)
[2019-09-21] MEDS: NICOTINE 14 MG (NICODERM) PATCH TD SCH (20:38)
[2019-09-21] MEDS ORDERED: ANTACID SUSP 30 ML UDC (MYLANTA) PO ONE (21:30)
[2019-09-21] MEDS ORDERED: ENOXAPARIN 40 MG/0.4 ML (LOVENOX) SYR SC SCH (21:30)
[2019-09-22] VITALS: BP 90/69
--- NOTE | 2019-09-22 | NUR ---
This RN in room to take patient's midnight vitals, patient had [employer] bag full of medication bottles that had not been there when this RN was previously in room. Patient stated "I didn't take any of those". This RN locked patient's medications in patient cabinet. Patient had [employer] insurance card as well as [place] Debit/Visa card. This RN gave those cards back to patient, witnessed by OLGA Vasquez.
[2019-09-22 01:00] VITALS: BP 91/65
[2019-09-22 03:40] LABS: CHOLESTEROL 94 MG/DL (< 200); HDL CHOLESTEROL 18 MG/DL (40-60); TRIGLYCERIDES 103 MG/DL (<150); VLDL CHOLESTEROL 21 MG/DL (5-40)
--- NOTE | 2019-09-22 04:56 | Pulmonary Consultation ---
History of Present Illness History of Present Illness Date Seen by Provider: Sep 22, 2019 Time Seen by Provider: 04:53 Date of Admission History of Present Illness 59yo with hx of tobacco use presented to ED secondary to midsternal intermittent CP which became much worse this morning. Pt also complains of weakness and worsening SOB. Denies fever or chills N/V. Allergies and Home Medications Allergies Coded Allergies: No Known Drug Allergies (Unverified , 01/22/18) Home Medications Atorvastatin Calcium 80 Mg Tablet, 80 MG PO DAILY, (Reported) LAST FILLED 01-29-2019 #90 Cyclobenzaprine HCl 10 Mg Tablet, 10 MG PO TID PRN for MUSCLE SPASMS, (Reported) Docusate Sodium 100 Mg Capsule, 100 MG PO DAILY, (Reported) Ergocalciferol (Vitamin D2) 1,250 Mcg Capsule, 1,250 MCG PO SATURDAY, (Reported) Furosemide 20 Mg Tablet, 20 MG PO DAILY PRN for FLUID RETENTION, (Reported) TAKE IF THERE IS A WEIGHT GAIN OF 3-5 LBS IN 1 WEEK Levothyroxine Sodium 25 Mcg Tablet, 25 MCG PO DAILY, (Reported) Metoprolol Succinate 50 Mg Tab.er.24h, 50 MG PO DAILY, (Reported) Multivitamin 1 Each Tablet, 1 EACH PO DAILY, (Reported) Past Vtaquhi-Prebos-Loqchq Hx Past Med/Social Hx: Reviewed Nursing Past Med/Soc Hx Patient Social History Alcohol Use: Denies Use Recreational Drug Use: No Smoking Status: Current Everyday Smoker Type Used: Cigarettes Recent Foreign Travel: No Contact w/Someone Who Travel: No Recent Infectious Disease Expo: No Recent Hopitalizations: No Immunizations Up To Date Date of Pneumonia Vaccine: Jan 20, 2019 Seasonal Allergies Seasonal Allergies: No Past Medical History Surgeries: Yes (pacemaker/defib) Defibrillator Respiratory: Yes (pulmonary edema) Cardiac: Yes (QT syndrome) Cardiomyopathy, Congenital Heart Disease (long qt syndrome), Heart Attack (at 32yo), Hypertension, 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 Mother, brother, and multiple second degree relatives <50yo due to SCD. Review of Systems Time Seen by Provider: 10:24 Constitutional: Sweats, Weakness, Malaise; No: Fever, Chills, Other Eyes: No: Pain, Vision change, Conjunctivae inflammation, Eyelid inflammation, Other, Redness ENT: Nose congestion; No: Ear pain, Ear discharge, Nose pain, Nose discharge, Mouth pain, Mouth swelling, Throat pain, Throat swelling, Other Respiratory: Cough, Dry, Shortness of breath, SOB with excertion, Wheezing, Pleuritic Pain; No: Hemoptysis Cardiovascular: Palpitations, Paroxysmal Noc. Dyspnea, Edema, Lt Headedness Sepsis Event Evaluation Height, Weight, BMI Height: 5'7.00" Weight: 190lbs. oz. 86.758575ru; 26.14 BMI Method:Stated Exam Exam Vital Signs Date Time Temp Pulse Resp B/P (MAP) Pulse Ox O2 Delivery O2 Flow Rate FiO2 09/22/19 00:00 36.9 92 15 90/69 (76) 94 Nasal Cannula 2.00 09/22/19 00:00 Nasal Cannula 2.00 09/21/19 21:00 Nasal Cannula 2.00 09/21/19 20:00 36.6 09/21/19 20:00 36.7 85 22 92/69 (77) 96 Nasal Cannula 2.00 09/21/19 20:00 Nasal Cannula 2.00 09/21/19 19:09 80 09/21/19 17:09 36.9 96 20 87/42 95 Nasal Cannula 2.00 09/21/19 17:06 92 Nasal Cannula 2.00 09/21/19 16:32 92/61 (71) 09/21/19 16:00 36.0 09/21/19 16:00 Nasal Cannula 2.00 09/21/19 15:00 81 28 69/41 (50) 92 Nasal Cannula 2.00 09/21/19 14:00 87 20 81/52 (62) 90 Nasal Cannula 2.00 09/21/19 13:18 83 09/21/19 13:11 Nasal Cannula 2.00 09/21/19 13:00 84 10 88/67 (74) 95 Nasal Cannula 2.00 09/21/19 12:50 36.0 84 11 91/66 (74) 93 Nasal Cannula 2.00 09/21/19 12:13 89 18 90/74 94 Room Air 09/21/19 11:07 94 Nasal Cannula 2.00 09/21/19 11:05 87 18 89/58 (68) 95 Nasal Cannula 09/21/19 07:35 36.8 102 18 111/80 (90) 89 Room Air 09/21/19 07:35 Nasal Cannula 2.00 I & O 09/22/19 07:00 Intake Total 3340 ml Output Total 1450 ml Balance 1890 ml Height & Weight Height: 5'7.00" Weight: 190lbs. oz. 86.985875wf; 26.14 BMI Method:Stated General Appearance: No Apparent Distress, WD/WN HEENT: Moist Mucous Membranes; No Scleral Icterus (L), No Scleral Icterus (R) Neck: Normal Inspection, Supple Respiratory: No Accessory Muscle Use, No Respiratory Distress, Decreased Breath Sounds Cardiovascular: Regular Rate, Rhythm, No Murmur Capillary Refill: Less Than 3 Seconds Extremity: Non Tender, No Calf Tenderness, No Pedal Edema Neurologic/Psychiatric: Alert, Oriented x3, Normal Mood/Affect Skin: Normal Color, Warm/Dry Results Lab Laboratory Tests 09/21/19 08:06 Assessment/Plan Assessment/Plan Acute CP -Cardiology consulted Hypotension -Monitor Long QT syndrome s/p Cardiac arrest in 2016 Cardiomyopathy EF 35-49% Hypothyroidism JEFERSON NEAL DO Sep 22, 2019 04:56
[2019-09-22 05:04] LABS: BASOPHILS % (AUTO) 0 % (0-10); EOSINOPHILS # (AUTO) 0.1 10^3/uL (0.0-0.3); EOSINOPHILS % (AUTO) 4 % (0-10); HEMATOCRIT 32 % (35-52); HEMOGLOBIN 10.9 G/DL (11.5-16.0); LYMPHOCYTES % (AUTO) 26 % (12-44); MEAN CORPUSCULAR HEMOGLOBIN 33 PG (25-34); MEAN CORPUSCULAR HGB CONC 34 G/DL (32-36); MEAN CORPUSCULAR VOLUME 98 FL (80-99); MEAN PLATELET VOLUME 11.3 FL (7.4-10.4); MONOCYTES # (AUTO) 0.4 X 10^3 (0.0-1.0); MONOCYTES % (AUTO) 10 % (0-12); NEUTROPHILS # (AUTO) 2.2 X 10^3 (1.8-7.8); NEUTROPHILS % (AUTO) 59 % (42-75); PLATELET COUNT 110 10^3/uL (130-400); RED CELL DISTRIBUTION WIDTH 14.7 % (10.0-14.5); WHITE BLOOD COUNT 3.6 10^3/uL (4.3-11.0)
[2019-09-22 05:09] LABS: CHLORIDE 108 MMOL/L (98-107); POTASSIUM 3.3 MMOL/L (3.6-5.0); SODIUM 140 MMOL/L (135-145)
[2019-09-22 05:10] LABS: CALCIUM 8.3 MG/DL (8.5-10.1); GLUCOSE 122 MG/DL (70-105)
[2019-09-22 05:12] LABS: CARBON DIOXIDE 22 MMOL/L (21-32)
[2019-09-22 05:14] LABS: CREATININE SERUM 0.74 MG/DL (0.60-1.30); GFR ESTIMATED > 60
[2019-09-22 05:15] LABS: BUN/CREATININE RATIO 8
[2019-09-22 05:16] LABS: MAGNESIUM 1.8 MG/DL (1.6-2.4)
[2019-09-22] MEDS ORDERED: LEVOTHYROXINE 25 MCG (LEVOTHROID) TAB PO SCH (06:30)
[2019-09-22 08:00] VITALS: BP 103/69
[2019-09-22] MEDS: NICOTINE 14 MG (NICODERM) PATCH TD SCH (08:44)
[2019-09-22] MEDS ORDERED: KCL 20 MEQ TAB (K-DUR) PO ONE (09:00)
[2019-09-22] MEDS ORDERED: NICOTINE 21 MG (NICODERM) PATCH TD SCH (09:00)
[2019-09-22] MEDS ORDERED: NICOTINE 14 MG (NICODERM) PATCH TD SCH (09:00)
--- NOTE | 2019-09-22 09:24 | Progress Note - Hospitalist ---
Subjective HPI/CC On Admission Date Seen by Provider: Sep 22, 2019 Time Seen by Provider: 09:14 Pt is a 59yoCF with a PMH of long QT syndrome and cardiac arrest in 2016. She states that she has bnot been feeling well for a while but the last few days she has been exhausted and very sleepy. She started to developed chest pain intermi ttently and it was worse last night. She drank some milk because she thought i was her heartburn and it got better so she went to bed. This morning she woke up with more chest tightness so decided to come in. At some point she called her PCP Mike Coello who ordered labs and recommended she get evaluation in the ER but she waited until today. She was started on thyroid medicine and Vitamin D though. Also her metoprolol was increased within the past week by her jawbone breaker and she states this always makes her hypotensive and tired. Subjective/Events-last exam Pt reports feeling better. Requesting discharge home. Discussed UDS results and patient reports she took her sister's opoids and Xanax. Informed her how dangerous this was and how it could kill her. Focused Exam Lactate Level 09/21/19 09:56: Lactic Acid Level 1.39 Objective Exam Vital Signs Vital Signs Date Time Temp Pulse Resp B/P (MAP) Pulse Ox O2 Delivery O2 Flow Rate FiO2 09/22/19 08:00 36.2 90 15 103/69 (80) 94 Nasal Cannula 2.00 Capillary Refill : Less Than 3 Seconds General Appearance: No Apparent Distress, WD/WN Respiratory: Lungs Clear, No Respiratory Distress Cardiovascular: Regular Rate, Rhythm, No Murmur Neurologic/Psychiatric: Alert, Oriented x3 Results/Procedures Lab Laboratory Tests 09/22/19 02:30 Patient resulted labs reviewed. Imaging: Reviewed Imaging Report Assessment/Plan Assessment and Plan Assess & Plan/Chief Complaint Chest pain Long QT Syndrome s/p Cardiac arrest in 2016 Cardiomyopathy troponin negative x1 Had 4 beat run of V-tach in ER Cardiology consulted, appreciate recs, requesting records from [facility] Mildly hypotensive- trend Continue home meds as BP allows Echo reveals EF of 35-40% Fatigue Likely multifactorial UDS positive for opiates and benzos- advised her against this Also recently increased Metoprolol GERD PPI Hypothyroidism Resume home supplement Clinical Quality Measures AMI/AHF: ASA po Prior to arrival: No DVT/VTE Risk/Contraindication: Risk Factor Score Per Nursin RFS Level Per Nursing on Admit: 4+=Very High MARK TYSON MD Sep 22, 2019 09:24
--- NOTE | 2019-09-22 11:50 | Discharge Inst-Simple/Standard ---
Discharge Inst-Standard Patient Instructions/Follow Up Plan of Care/Instructions/FU: Please continue to take your medications as written. Please only take the prescription medicines you are prescribed. Please follow up with Dr Villareal for your stress test on and with Mike Coello or Dr Wiggins within 1 week. Activity as Tolerated: Yes Discharge Diet: Cardiac Diet Return to The Hospital For: Chest pain, shortness of breath, palpitations, fever, abdominal pain, if you feel you are getting worse. MARK TYSON MD Sep 22, 2019 11:50
--- NOTE | 2019-09-22 12:49 | NUR ---
PT DISCHARGED HOME WITH INSTRUCTION TO TAKE METOPROLOL AT NIGHT INSTEAD OF MORNING. SHE WAS INSTRUCTED TO BE AT THE [facility] FOR HER LEXISCAN ON 09/22/2019 CHECK IN AT 1145 AND NO FOOD FOR 6 HOURS PRIOR TO TEST AND NO CAFFEINE FOR 12 HOURS PRIOR TO TEST. PT VOICES UNDERSTANDING AND FOLLOW UP FAX WAS SENT TO DR PALACIOS'S OFFICE
--- NOTE | 2019-09-22 13:34 | Cardiology Progress Note ---
Cardiology SOAP Progress Note Subjective: No cardiac complaints. Feeling much better. Objective: I&O/Vital Signs 09/22/19 09/22/19 09/22/19 09/22/19 04:00 04:00 07:07 08:00 Temp 36.8 Pulse 85 O2 Delivery Nasal Cannula Room Air O2 Flow Rate 2.00 09/22/19 09/22/19 08:00 09:00 Temp 36.2 Pulse 90 Resp 15 B/P (MAP) 103/69 (80) Pulse Ox 94 O2 Delivery Nasal Cannula Room Air O2 Flow Rate 2.00 09/22/19 00:00 Intake Total 3340 ml Output Total 1450 ml Balance 1890 ml Weight (Pounds): 190 Weight (Calculated Kilograms): 86.003644 Constitutional: appears stated age, AAO x 3; No apparent distress; well- developed, well-nourished Respiratory: chest is bilaterally symmetric, lungs clear to auscultation; No wheezing Cardiovascular: regular rate-rhythm, S1 and S2; No diastolic murmur, No systolic murmur Gastrointestional: soft, audible bowel sounds; No spleenomegaly Extremities: normal range of motion, non-tender, normal inspection; No clubbing, No cyanosis; no lower extremity edema bilateral; No significant edema Neurologic/Psychiatric: no motor/sensory deficits, alert, normal mood/affect, o riented x 3, power is 5/5 both on sides Skin: normal color, warm/dry; No rash, No ulcerations Results/Procedures: Labs Laboratory Tests 09/21/19 17:55: Troponin I < 0.028 09/22/19 02:30: White Blood Count 3.6L, Red Blood Count 3.30L, Hemoglobin 10.9L, Hematocrit 32L, Mean Corpuscular Volume 98, Mean Corpuscular Hemoglobin 33, Mean Corpuscular Hemoglobin Concent 34, Red Cell Distribution Width 14.7H, Platelet Count 110L, Mean Platelet Volume 11.3H, Neutrophils (%) (Auto) 59, Lymphocytes (%) (Auto) 26, Monocytes (%) (Auto) 10, Eosinophils (%) (Auto) 4, Basophils (%) (Auto) 0, Neutrophils # (Auto) 2.2, Lymphocytes # (Auto) 1.0, Monocytes # (Auto) 0.4, Eosinophils # (Auto) 0.1, Basophils # (Auto) 0.0, Sodium Level 140, Potassium Level 3.3L, Chloride Level 108H, Carbon Dioxide Level 22, Anion Gap 10, Blood Urea Nitrogen 6L, Creatinine 0.74, Estimat Glomerular Filtration Rate > 60, B UN/Creatinine Ratio 8, Glucose Level 122H, Calcium Level 8.3L, Phosphorus Level 3.0, Magnesium Level 1.8, Triglycerides Level 103, Cholesterol Level 94, LDL Cholesterol Direct 71, VLDL Cholesterol 21, HDL Cholesterol 18L A/P: Assessment/Dx: Fatigue, Prolonged QT syndrome, ICD, Nonischemic cardiomyopathy, Hypertension, Hyperlipidemia, Active smoking. Plan: Fatigue, unclear etiology. Patient was hypotensive. We will gradually decrease her cardiomyopathy medications and see if she has improvement. Prolonged QT syndrome, brief run of nonsustained VT. On beta blockers. Already has an ICD. ICD, no active issues. Nonischemic cardiomyopathy, echocardiogram done 09/21/2019 shows EF of 35-40 percent with apical akinesis. This may require noninvasive evaluation of the coronaries with a stress test in the near future. Hypertension, mildly hypotensive. However will require low-dose beta eleuterio as an outpatient. Hyperlipidemia, continue statin therapy. Active smoking. Smoking cessation was strongly recommended. Thank you for your consultation. Please call me if you have any questions. Priti Villareal MD, FACP, FACC, FSCAI, FHRS, CCDS Interventional Cardiology Cardiac Electrophysiology Vascular Medicine and Endovascular Interventions Focused Exam Lactate Level 09/21/19 09:56: Lactic Acid Level 1.39 Clinical Quality Measures AMI/AHF: ASA po Prior to arrival: William Leger MD Sep 22, 2019 13:34
[2019-09-22] MEDS ORDERED: PATCH REMOVAL TP SCH (21:00)
[2019-09-23] MEDS ORDERED: PATCH REMOVAL TP SCH (09:00)
--- NOTE | 2019-10-02 15:13 | Physician Query-Final Dx ---
MARIAJOSE RAMIRES 10/02/19 1513: Final Diagnosis Give Final Diagnosis Please give Final Diagnosis MARK TYSON MD 10/05/19 1553: Final Diagnosis Give Final Diagnosis Chest Pain MARIAJOSE RAMIRES Oct 02, 2019 15:13 MARK TYSON MD Oct 05, 2019 15:53
== END 2019-09-22 11:50 | disposition home or self-care (01) ==
LOC: EDUNIT# 07:35 → ER 07:36 → UNDOADMIN 11:33 → ICU 11:33 → UNDODISIN 09-22 12:49
PROVIDERS: ADMIT Family Medicine; ATTEND Family Medicine
DX: R07.9 Chest pain, unspecified (principal); I45.81 Long QT syndrome; I42.9 Cardiomyopathy, unspecified; I47.2 Ventricular tachycardia; I25.2 Old myocardial infarction; Z86.74 Personal history of sudden cardiac arrest; I10 Essential (primary) hypertension; I49.9 Cardiac arrhythmia, unspecified; F41.9 Anxiety disorder, unspecified; I95.9 Hypotension, unspecified; F17.210 Nicotine dependence, cigarettes, uncomplicated; R53.1 Weakness; Z79.01 Long term (current) use of anticoagulants; Z95.810 Presence of automatic (implantable) cardiac defibrillator; E03.9 Hypothyroidism, unspecified; R53.83 Other fatigue; K21.9 Gastro-esophageal reflux disease without esophagitis
CPT/HCPCS: 71045; 80048; 80053; 80061; 80306; 81000; 83605; 83735 ×2; 83874; 84100; 84484; 85025 ×2; 85379; 85610; 85730; 86141; 87040; 93005; 93041; 94640; 96360; 96361; 99284; C8929; G0378; 36415

== ENCOUNTER → 2019-09-24 | Outpatient (CLI) | payer OTHER ==
[~2019-09-24] VITALS: Ht 170 cm; Wt 81.0 kg
[~2019-09-24] MED LIST changes: +ATOR80TA76 PO; +CATHETER FLUSH 10 ML SYR IV PRN; +CYCL10TA9 PO; +DOCU-143 PO; +ELQUIS; +ERGO50006 PO; +LEVO25TA80 PO; +METO50TA7 PO; +MULT-1136 PO; +REGADENOSON 0.4 MG/5 ML SYR (LEXISCAN) IV ONE
[2019-09-28 14:57] VITALS: BP 113/76
--- NOTE | 2019-09-28 14:57 | Cardiology Stress Test Report ---
Stress Test Report Type of NM Stress Test: Test Type: LEXISCAN 0.4MG/5ML Date of Procedure/Referring: Date of Procedure: Sep 24, 2019 PCP William Villareal MD Admitting Physician Placido Wiggins MD Indications: Precordial pain. Baseline Heart Rate: 76 Baseline Blood Pressure: Blood Pressure Systolic: 113 Blood Pressure Diastolic: 76 Baseline EKG: Baseline EKG: Sinus rhythm Summary & Conclusion: Summary: The patient was brought to the stress lab after informed consent was taken. Stress test was performed according to the Lexiscan protocol. 0.4 mg of IV Lexiscan was given. Low-grade exercise was performed. Baseline EKG showed sinus rhythm at 76 BPM. Initial blood pressure 113/76 mmHg. Maximum heart rate 89 bpm and blood pressure 115/77 mmHg. Patient did not have any chest pain, arrhythmias or ST segment changes during the stress test. 10.92 mCi of Myoview were given for rest imaging and 30.2 mCi of Myoview given for stress imaging. Transient ischemic dilatation score 1.11, EF 36 percent. Apical hypokinesis. Severe, large fixed defect in the distal anterior/apical wall. SSS 42, SRS 31, SDS 6. Conclusion: Pharmacological stress test was negative for ischemia. Moderate LV systolic dysfunction noted with apical akinesis. 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 No inducible ischemia. William VILLAREAL MD Sep 28, 2019 14:57
== END ==
LOC: CARD 11:39
PROVIDERS: ATTEND Internal Medicine Interventional Cardiology
DX: R07.2 Precordial pain (principal)
CPT/HCPCS: 78452; 93017; A9502